=== PATIENT | male | born 1960 | race Caucasian/White ===

== ENCOUNTER 2018-12-23 06:59 | Day surgery (SDC) | payer OTHER ==
--- NOTE | 2018-12-23 07:13 | ANESTHESIA ---
Pre-Anesthesia VS, & Labs - Diagnosis Right inguinal hernia - Procedure Laparascopic Right inguinal hernia repair with mesh Height 6 ft 2 in - NPO Other (Coffee at 0500) Home Medications and Allergies Home Medications: Ambulatory Orders Ibuprofen [Motrin] 800 mg PO Q8H PRN 12/12/18 Methocarbamol 2 tab PO TID 12/12/18 Ibuprofen [Motrin] 800 mg PO Q8H PRN 12/12/18 Methocarbamol 2 tab PO TID 12/12/18 Allergies/Adverse Reactions: Allergies Allergy/AdvReac Type Severity Reaction Status Date / Time No Known Drug Allergies Allergy Verified 12/20/18 13:45 Anes History & Medical History - Anesthetic History Anesthesia Complications: reports: No previous complications Family history of Anesthesia Complications: Denies Family history of Malignant Hyperthermia: Denies - Medical History Cardiovascular: reports: None Pulmonary: reports: None Gastrointestinal: reports: None Urinary: reports: None Neuro: reports: None Musculoskeletal: reports: Chronic back pain Endocrine/Autoimmune: reports: None Blood Disorders: reports: None Skin: reports: None Smoking Status: Never smoker Psychosocial: reports: No issues indicated - Surgical History General: Other Eyes Ears Nose Throat (EENT): Tonsil/Adenoidectomy Orthopedic: Arthroscopic surgery Exam General: Alert, Oriented x3, Cooperative Dental: WNL Mouth Opening: Greater than 4 Fingerbreadths Neck Mobility: Normal Mallampati classification: I Thyromental Distance: greater than 6 cm Respiratory: Lungs clear Cardiovascular: Regular rate Neurological: Normal speech Mental/Cognitive Status: Alert/Oriented X3, Normal for patient Cognitive Status: Within normal limits Plan Anesthesia Type: General Consent for Procedure(s) Verified and Reviewed: Yes Code Status: Attempt Resuscitation ASA classification: 1-Healthy patient Is this case an emergency?: No
[2018-12-23] MEDS ORDERED: LIDOCAINE 1%-EPI 1:100000 30 ML MDV ONE (07:24)
[2018-12-23] MEDS ORDERED: ceFAZolin 1 GM VIAL ONE (07:24)
[2018-12-23] MEDS ORDERED: BUPIVACAINE 0.25% PF 10 ML VIAL ONE (07:24)
[2018-12-23] MEDS ORDERED: LACTATED RINGERS 1,000 ML IV ONE ×2 (07:25→09:30)
[2018-12-23] MEDS ORDERED: ceFAZolin 2 GM/50 ML 2 GM/50 ML BAG IV ONE (07:33)
[2018-12-23] MEDS ORDERED: PROPOFOL 200 MG/20 ML VIAL IVP ONE (08:21)
[2018-12-23] MEDS ORDERED: DEXAMETHASONE 4 MG/ML VIAL IVP ONE (08:21)
[2018-12-23] MEDS ORDERED: fentaNYL 100 MCG/2 ML VIAL IVP ONE (08:21)
[2018-12-23] MEDS ORDERED: MIDAZOLAM 2 MG/2 ML VIAL IVP ONE (08:21)
[2018-12-23] MEDS ORDERED: KETOROLAC 30 MG/ML VIAL IVP ONE (08:21)
[2018-12-23] MEDS ORDERED: ePHEDrine 50 MG/ML VIAL IVP ONE (08:21)
[2018-12-23] MEDS ORDERED: NEOSTIGMINE 1 MG/1 ML 10 ML MDV IVP ONE (08:21)
[2018-12-23] MEDS ORDERED: ONDANSETRON 4 MG/2 ML VIAL IVP ONE (08:21)
[2018-12-23] MEDS ORDERED: GLYCOPYRROLATE 1 MG/5 ML VIAL IVP ONE (08:21)
[2018-12-23] MEDS ORDERED: ROCURONIUM 50 MG/5 ML VIAL IVP ONE (08:21)
[2018-12-23] MEDS ORDERED: BUPIVACAINE 0.5%-EPI 1:200000 PF 30 ML VIAL SUBQ ONE ×2 (09:02)
[2018-12-23] MEDS ORDERED: BUPIVACAINE 0.5%-EPI 1:200000 PF 30 ML VIAL ONE (09:07)
[2018-12-23] MEDS ORDERED: oxyCODONE 5 MG TABLET PO PRN (09:59)
[2018-12-23] MEDS ORDERED: IBUPROFEN 600 MG TABLET PO PRN (09:59)
[2018-12-23] MEDS ORDERED: ACETAMINOPHEN 325 MG TABLET PO PRN (09:59)
[2018-12-23] MEDS ORDERED: ONDANSETRON 4 MG/2 ML VIAL IVP PRN (09:59)
[2018-12-23 11:37] VITALS: BP 125/82
--- NOTE | 2018-12-23 11:43 | OPERATIVE REPORT ---
DATE OF SERVICE: 12/23/2018 Physician: Nikunj Kirby MD PREOPERATIVE DIAGNOSIS: Symptomatic recurrent right inguinal hernia. POSTOPERATIVE DIAGNOSIS: Symptomatic recurrent right inguinal hernia. PROCEDURE PERFORMED: Laparoscopic repair of symptomatic recurrent right inguinal hernia with polypropylene mesh. ANESTHESIA: General endotracheal by Shannan Isaac CRNA. SURGEON: Nikunj Kirby MD ESTIMATED BLOOD LOSS: 25 mL. COMPLICATIONS: None. FINDINGS: Moderate sized recurrent indirect right inguinal hernia was present. There was no evidence of direct or femoral hernia. INDICATIONS: Patient is a 58-year-old gentleman who is 5 years status post open repair of a right inguinal hernia with mesh. Within a year of his surgery, he noted a recurrent bulge, which has progressively enlarged and become increasingly painful. Examination revealed evidence of a reducible recurrent right inguinal hernia, and he was advised to undergo laparoscopic repair. TECHNIQUE: After informed consent, the patient was taken to the operating room where he was placed under general endotracheal anesthesia. Preoperative preparation included application of sequential calf compression boots and administration of 2 grams of cefazolin intravenously within an hour of the incision. His lower abdomen and groin had been clipped in the ASU, and was prepared with ChloraPrep solution and draped in the usual sterile fashion. An infraumbilical vertical incision 2 cm in length was made and carried down through subcutaneous tissues until the anterior rectus sheath was identified and was incised vertically for a distance of 2 cm, immediately to the right of the midline. This exposed the rectus muscle, which was retracted laterally, the Spacemaker dissecting balloon system was then inserted and directed caudally to the pubis. The Spacemaker dissecting balloon was then inflated and held in place for 3 minutes. It was then deflated and removed. The structural balloon was inflated, and pneumopreperitoneum was achieved with carbon dioxide. A 10 mm 30-degree [place] telescope was then inserted. Two additional 5 mm ports were placed in the lower midline. Instruments were passed, and the preperitoneal space was carefully dissected exposing the Victoriano ligament, the direct, indirect, and femoral spaces. Dissection was carried out laterally and superiorly almost to the level of the umbilicus. A dilated internal ring with a cord lipoma and indirect sac was identified. The cord lipoma was reduced into the peritoneal cavity using blunt dissection and electrocautery. The indirect sac was also identified and mobilized proximally out of the inguinal canal. An opening was made in the sac at one point, and this was closed with clips. After the dissection had been complete, hemostasis ensured, a large right Bard 3DMax mesh, which had been soaked in antibiotic solution containing 1 gram of cefazolin/liter, was placed in the preperitoneal space expanded, oriented properly, and secured in place with the secure strap, securing it medially and securing it superiorly and laterally, with no straps being placed in the inferomedial quadrant to avoid nerve injury. After hemostasis had been assured with electrocautery, pneumopreperitoneum was allowed to escape and the peritoneal sac was inflated against the mesh. Instruments and cannulas were removed under direct vision. Pneumoperitoneum was allowed to escape, and the incisions were closed in layers using continuous 0 Vicryl to reapproximate the midline fascia at the infraumbilical port, followed by 4-0 Monocryl subcuticular skin closure at all port sites, followed by Dermabond; 20 mL of 0.5% Marcaine with epinephrine was infiltrated into the incision to assist with postoperative analgesia. Anesthesia was terminated, and patient was transferred to the recovery room in satisfactory condition. Instrument counts were correct x2, and no drains were used. cc: BRYSON Dhillon TD: 12/23/2018 10:21 EDILMA
== END 2018-12-23 07:00 | disposition home or self-care (01) ==
LOC: SDS 06:59
PROVIDERS: ATTEND Internal Medicine Gastroenterology
PROC: 0YU54JZ Supplement Right Inguinal Region with Synthetic Substitute, Percutaneous Endoscopic Approach (ICD-10-PCS; principal; 2018-12-23 08:00)
DX: K40.91 Unilateral inguinal hernia, without obstruction or gangrene, recurrent (principal); M54.9 Dorsalgia, unspecified
CPT/HCPCS: 49651; C1781; J0690; J7120

== ENCOUNTER 2020-01-22 16:07 | Emergency (ER) | payer OTHER ==
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
[2020-01-22 17:52] VITALS: BP 106/76
== END 2020-01-22 17:51 | disposition home or self-care (01) ==
LOC: ED 16:07
DX: S22.41XA Multiple fractures of ribs, right side, initial encounter for closed fracture (principal); V19.3XXA Pedal cyclist (driver) (passenger) injured in unspecified nontraffic accident, initial encounter; Y93.55 Activity, bike riding
CPT/HCPCS: 99283; 99284